=== PATIENT | female | born 1970 | race Two or more races ===

== ENCOUNTER → 2017-09-03 12:40 | Outpatient (CLI) | payer BC ==
[~2017-09-03 12:40] MED LIST: ADVIL200 MG PO; ASPIRIN325 MG PO; CLARITIN 10 MG10 MG PO; OMEPRAZOLE20 M1 PO; TOPAMAX50 MG PO; ULTRAM50 MG PO
[2017-09-23 06:49] VITALS: BMI 28.4
== END | disposition home or self-care (01) ==
LOC: D.NM 12:40
DX: R10.11 Right upper quadrant pain (principal)

== ENCOUNTER 2017-09-23 06:10 | Day surgery (SDC) | payer BC ==
[~2017-09-23] VITALS: Ht 154.9 cm; Wt 68.0 kg
--- NOTE | ~2017-09-23 | OP ---
PATIENT NAME: RADHA MONDRAGON MEDICAL RECORD: [id number] :72 LOCATION:D.OPS ADMISSION DATE: SURGEON: ZOILA HARDEN MD DATE OF OPERATION: 09/23/2017 PREOPERATIVE DIAGNOSES: 1. Biliary dyskinesia. 2. Hypercholesterolemia. 3. Gastroesophageal reflux disease. POSTOPERATIVE DIAGNOSES: 1. Biliary dyskinesia. 2. Hypercholesterolemia. 3. Gastroesophageal reflux disease. PROCEDURE: Laparoscopic cholecystectomy. SURGEON: Zoila Harden MD REPORT OF PROCEDURE: The patient's abdomen was prepped and draped in sterile fashion. A cutdown was made on the superior aspect of the umbilicus, 0 Vicryls were placed in the fascia bilaterally and the fascia was incised with 15-blade. I then bluntly entered the peritoneal cavity and placed a 12-mm [place] port. Under direct visualization, a 5-mm trocar was placed in the epigastrium and 2 more 5-mm trocars were placed in the right subcostal region. The gallbladder was grasped and elevated. There is no sign of any other inflammatory adhesions. The cystic artery and cystic duct were dissected free and these were clipped proximally and distally and ligated in standard fashion. The gallbladder was taken off the liver bed using electrocautery and placed into the right upper quadrant. Any bleeding from the liver bed was then treated with electrocautery. At this point, the ports and insufflation were then removed and the gallbladder was taken out through the umbilicus. The umbilical fascia was closed with interrupted 0 Vicryls times 3. The wounds were irrigated out with normal saline, infused with 10 mL of 0.25% Marcaine with epinephrine. Skin incisions were all closed with subcutaneous 5-0 Monocryl and dressed appropriately. COMPLICATIONS: None. CONDITION: Stable. ANESTHESIA: General endotracheal and local. BLOOD LOSS: Minimal. TRANSINT:[id number] Voice Confirmation ID: [id number] DOCUMENT ID: [id number] ZOILA HARDEN MD at 1144 CC: [id number] DICTATION DATE: 09/23/17 1015 PAI GOW DEALER: 09/23/17 1135 REG [facility] [address] [place] [address]
[~2017-09-23 06:10] MED LIST changes: -ADVIL200 MG PO; -ULTRAM50 MG PO
[2017-09-23] MEDS ORDERED: ADVIL200 MG PO (06:47)
[2017-09-23 06:48] LABS: BASOPHILS 0.6 % (0-2); EOSINOPHILS 2.5 % (0-7); HEMATOCRIT 33.7 % (36.0-48.0); HEMOGLOBIN 10.6 g/dL (12-16); IMMATURE GRANULOCYTES 0.3 % (0-5); LYMPHOCYTES 33.7 % (15-50); MCH 24.4 pg (26.0-34.0); MCHC 31.5 g/dL (31.0-37.0); MCV 77.5 fL (80.0-100.0); MEAN PLATELET VOLUME 10.9 fL (7.4-10.4); MONOCYTES 8.1 % (2-11); NEUTROPHILS 54.8 % (40-80); PLATELET COUNT 327 10x3/uL (130-400); RBC 4.35 10x6/uL (4.00-5.40); RDW 16.8 % (11.5-14.5); WBC 7.1 10x3/uL (4.8-10.8)
[2017-09-23 06:49] VITALS: BP 111/71; Ht 154.9 cm; Wt 68.0 kg
[2017-09-23 06:57] LABS: CALC OSMOLALITY 280 mosm/kg (275-300); CALCIUM 8.7 mg/dL (8.5-10.1); CARBON DIOXIDE 24.9 mmol/L (21.0-32.0); CHLORIDE - SERUM 106 mmol/L (98-107); CREATININE - SERUM 0.5 mg/dL (0.6-1.3); GLUCOSE 91 mg/dL (74-106); POTASSIUM - SERUM 3.8 mmol/L (3.5-5.1); SODIUM 142 mmol/L (136-145); UREA NITROGEN 8 mg/dL (7-18); eGFR NON AFRICAN AMERICAN > 90 mL/min (90-120)
[2017-09-23] MEDS ORDERED: ULTRAM50 MG PO (10:12)
== END 2017-09-23 12:15 | disposition home or self-care (01) ==
LOC: D.OPS 06:10 → D.PAN 09:00 → D.OPS 12:15
PROVIDERS: Anesthesiology
DX: K82.8 Other specified diseases of gallbladder (principal); E78.00 Pure hypercholesterolemia, unspecified; K21.9 Gastro-esophageal reflux disease without esophagitis; Z01.812 Encounter for preprocedural laboratory examination